=== PATIENT | female | born 1975 | race Caucasian/White ===

== ENCOUNTER 2016-04-11 14:09 | Emergency (ER) | payer MEDICAID, OTHER ==
[~2016-04-11] VITALS: Ht 162.6 cm; Wt 50.0 kg
[~2016-04-11 14:09] MED LIST: CHLO25 PO
[2016-04-11 14:12] VITALS: BP 128/94; PULSE 148; RESP 24; TEMP 98.1; O2SAT 93
--- NOTE | 2016-04-11 14:22 | PD ---
HPI Chief Complaint: General Weakness Time Seen by Provider: 14:22 Travel History International Travel<30 days: No Contact w/Intl Traveler<30days: No Traveled to known affect area: No History of Present Illness HPI 40-year-old female came to the emergency room with history of lower back pain and leg pain that has been going on for past several weeks. She has been tearful but I smell strong alcohol in her breath. She says she was clean for 30 days and has started drinking again for past 2 weeks because of the pain. She drinks half a bottle of vodka and couple beers every day. However she says that it is "nearly not enough". She had an MRI done of her lower back one week ago which was within normal limits. Patient is tachycardic in 140s. She is also upset. She has been going to a chiropractor for these pain. FORMERLY [facility], [facility] Past Medical History Narrative Medical List of her past medical history is reviewed from the nursing note. Cardiovascular Problems: Yes (HTN) Diminished Hearing: No GERD: Yes Hypertension: Yes ?: Not : 8 Para: 2 Social History Alcohol Use: Yes (6 BEERS DAILY & 1/2 P[place] DAILY) Tobacco Use: No Substance Use: Yes (XANAX) Allergies-Medications (Allergen,Severity, Reaction): Coded Allergies: No Known Allergies (Unverified , 04/11/16) Comments No known drug allergies. Reported Meds & Prescriptions Reported Meds & Active Scripts Active Reported Zantac (Ranitidine HCl) 150 Mg Tab 150 Mg PO BID Amlodipine (Amlodipine Besylate) 5 Mg Tab 5 Mg PO DAILY Narrative Medication List of her home medications reviewed from the nursing note. Review of Systems Except as stated in HPI: all other systems reviewed are Neg Physical Exam Narrative GENERAL: Awake, alert, tearful, moderate distress SKIN: Warm and dry. HEAD: Atraumatic. Normocephalic. EYES: Pupils equal and round. No scleral icterus. No injection or drainage. ENT: No nasal bleeding or discharge. Mucous membranes pink and moist. NECK: Trachea midline. No JVD. CARDIOVASCULAR: Regular rate and rhythm. No murmur appreciated. RESPIRATORY: No accessory muscle use. Clear to auscultation. Breath sounds equal bilaterally. GASTROINTESTINAL: Abdomen soft, non-tender, nondistended. Hepatic and splenic margins not palpable. MUSCULOSKELETAL: No obvious deformities. No clubbing. No cyanosis. No edema. NEUROLOGICAL: Awake and alert. No obvious cranial nerve deficits. Motor grossly within normal limits. Normal speech. PSYCHIATRIC: Appropriate mood and affect; insight and judgment normal. Data Data Last Documented VS Vital Signs Date Time Temp Pulse Resp B/P Pulse Ox O2 Delivery O2 Flow Rate FiO2 04/12/16 11:19 88 18 135/93 96 Room Air 04/12/16 03:16 97.4 Orders Urinalysis - C+S If Indicated (04/11/16 14:15) Ed Urine Pregnancytest Poc (04/11/16 14:15) Complete Blood Count With Diff (04/11/16 14:42) Comprehensive Metabolic Panel (04/11/16 14:42) Drug Screen, Random Urine (04/11/16 14:42) Alcohol (Ethanol) (04/11/16 14:42) Magnesium (Mg) (04/11/16 14:42) Sodium Chlor 0.9% 1000 Ml Inj (Ns 1000 M (04/11/16 14:45) Creatine Kinase (Cpk) (04/11/16 14:42) Potassium Chloride Eff (K-Lyte Cl Eff) (04/11/16 16:15) Psych Screen (04/11/16 16:36) Ibuprofen (Motrin) (04/11/16 18:30) Diet Heart Healthy (04/12/16 Breakfast) Alcohol Withdrawal Asmt-Ciwa ONCE (04/11/16 19:12) Flumazenil Inj (Romazicon Inj) (04/11/16 19:15) Lorazepam (Ativan) (04/11/16 19:15) Lorazepam Inj (Ativan Inj) (04/11/16 19:15) Lorazepam (Ativan) (04/11/16 19:15) Lorazepam Inj (Ativan Inj) (04/11/16 19:15) Lorazepam Inj (Ativan Inj) (04/11/16 19:15) Lorazepam Inj (Ativan Inj) (04/11/16 19:15) Diet Regular Basic (04/12/16 Lunch) Labs Laboratory Tests Test 04/11/16 14:50 White Blood Count 20.4 TH/MM3 Red Blood Count 3.12 MIL/MM3 Hemoglobin 12.8 GM/DL Hematocrit 37.5 % Mean Corpuscular Volume 119.9 FL Mean Corpuscular Hemoglobin 40.9 PG Mean Corpuscular Hemoglobin 34.1 % Concent Red Cell Distribution Width 16.5 % Platelet Count 318 TH/MM3 Mean Platelet Volume 8.1 FL Neutrophils (%) (Auto) 67.0 % Lymphocytes (%) (Auto) 27.0 % Monocytes (%) (Auto) 5.1 % Eosinophils (%) (Auto) 0.5 % Basophils (%) (Auto) 0.4 % Neutrophils # (Auto) 13.7 TH/MM3 Lymphocytes # (Auto) 5.5 TH/MM3 Monocytes # (Auto) 1.0 TH/MM3 Eosinophils # (Auto) 0.1 TH/MM3 Basophils # (Auto) 0.1 TH/MM3 CBC Comment AUTO DIFF Differential Total Cells 100 Counted Neutrophils % (Manual) 68 % Lymphocytes % 25 % Monocytes % 7 % Neutrophils # (Manual) 13.9 TH/MM3 Differential Comment FINAL DIFF MANUAL Platelet Estimate NORMAL Platelet Morphology Comment NORMAL Urine Color DARK-YELLOW Urine Turbidity HAZY Urine pH 5.5 Urine Specific [place] 1.026 Urine Protein 30 mg/dL Urine Glucose (UA) NEG mg/dL Urine Ketones TRACE mg/dL Urine Occult Blood NEG Urine Nitrite NEG Urine Bilirubin NEG Urine Urobilinogen 4.0 MG/DL Urine Leukocyte Esterase NEG Urine RBC 1 /hpf Urine WBC 3 /hpf Urine Squamous Epithelial 2 /hpf Cells Urine Hyaline Casts 9 /lpf Urine Mucus MOD /lpf Microscopic Urinalysis Comment CULT NOT INDICATED Sodium Level 139 MEQ/L Potassium Level 3.2 MEQ/L Chloride Level 104 MEQ/L Carbon Dioxide Level 19.9 MEQ/L Anion Gap 15 MEQ/L Blood Urea Nitrogen 3 MG/DL Creatinine 0.48 MG/DL Estimat Glomerular Filtration 144 ML/MIN Rate Random Glucose 101 MG/DL Calcium Level 8.7 MG/DL Magnesium Level 1.8 MG/DL Total Bilirubin 0.7 MG/DL Aspartate Amino Transf 162 U/L (AST/SGOT) Alanine Aminotransferase 146 U/L (ALT/SGPT) Alkaline Phosphatase 324 U/L Total Creatine Kinase 26 U/L Total Protein 7.4 GM/DL Albumin 3.5 GM/DL Urine Opiates Screen NEG Urine Barbiturates Screen NEG Urine Amphetamines Screen NEG Urine Benzodiazepines Screen NEG Urine Cocaine Screen NEG Urine Cannabinoids Screen POS Ethyl Alcohol Level 308 MG/DL MDM Medical Decision Making Medical Screen Exam Complete: Yes Emergency Medical Condition: Yes Medical Record Reviewed: Yes Differential Diagnosis Chronic alcoholism, chronic back pain, electrolyte abnormalities, rhabdomyolysis Narrative Course 4:16 PM blood test results are coming back. Patient has significant leukocytosis that I'm not quite sure where that is coming from. She also has hypokalemia and I have given her by mouth potassium replacement. Liver enzymes are elevated which is from chronic alcoholism most probably. Urine drug screen is positive for marijuana. CPK is not elevated and the urine analysis has some ketones from her lack of diet. Patient has received 1 L of IV fluid bolus. I' ll order a second liter. 4:36 PM I just discussed with the patient regarding her test results. Patient has a significantly high alcohol level and he had functional which tells me that she has a very high tolerance for alcohol quite possibly from her chronic alcoholism which she agreed as well. Initially I was little baffled regarding the leukocytosis. Patient told me that a week ago she was given a five-day course of steroid which is quite possibly the reason for the leukocytosis. Meanwhile she has been constantly crying about her leg pain and told her family who was in the room that she would rather . I explained to her that from ER standpoint there is nothing more that can be done to investigate the leg pain. She does not have rhabdomyolysis as per my test results today. MRI done at [facility] as per her own admission 1 week ago was negative. There is a possibility that the pain could be peripheral neuropathy from chronic alcoholism and malnourishment. I have recommended her to follow up with her primary care and get a referral for pain management. Because of her suicidal comments I am requesting a psych screen at this point. 5 PM patient wanted to leave and family member approached me since they were concerned about her behavior. I have just Auguste acted her so that she can be in voluntarily kept in the ER till a psych screen is done. Procedures EKG Prior to Arrival: No Diagnosis Primary Impression: Chronic alcoholism Additional Impressions: Peripheral neuropathy Qualified Code: G62.9 - Peripheral polyneuropathy Major depression Qualified Code: F32.3 - Severe single current episode of major depressive disorder, with psychotic features Ildefonso Bridges MD Apr 11, 2016 14:22
[2016-04-11 14:32] VITALS: BP 141/94; PULSE 130; RESP 12; O2SAT 97
[2016-04-11] MEDS ORDERED: ZANT150T2 PO (14:34)
[2016-04-11] MEDS ORDERED: AMLO5TAB2 PO (14:34)
[2016-04-11] MEDS ORDERED: SODIUM CHLOR 0.9% 1000 ML INJ 1,000 ML IV ONE (14:45)
[2016-04-11 15:26] LABS: AUTOMATED NEUTROPHIL # 13.7 TH/MM3 (1.8-7.7); BASOPHIL # 0.1 TH/MM3 (0-0.2); BASOPHIL % 0.4 % (0.0-2.0); EOSINOPHIL # 0.1 TH/MM3 (0-0.4); EOSINOPHIL % 0.5 % (0.0-4.0); HEMATOCRIT 37.5 % (35.0-46.0); LYMPHOCYTE # 5.5 TH/MM3 (1.0-4.8); MEAN CELL VOLUME 119.9 FL (80.0-100.0); MEAN CORPUSCULAR HEMOGLOBIN 40.9 PG (27.0-34.0); MEAN CORPUSCULAR HGB CONC 34.1 % (32.0-36.0); MONO % 5.1 % (0.0-8.0); PLATELET COUNT 318 TH/MM3 (150-450); RED BLOOD COUNT 3.12 MIL/MM3 (4.00-5.30); RED CELL DISTRIBUTION WIDTH 16.5 % (11.6-17.2); WHITE BLOOD COUNT 20.4 TH/MM3 (4.0-11.0)
[2016-04-11 15:29] LABS: HEMO FLAGS AUTO DIFF
[2016-04-11 15:32] LABS: BLOOD, URINE NEG (NEG); COMMENT (UR) CULT NOT INDICATED; CULTURE IF INDICATED CULT NOT INDICATED; GLUCOSE,URINE NEG (NEG); HYALINE CAST, URINE 9 /lpf (RARE); KETONE, URINE TRACE mg/dL (NEG); MUCUS URINE MOD /lpf (OCC); NITRITE,URINE NEG (NEG); PH, URINE 5.5 (5.0-8.5); SQUAMOUS EPITHELIAL CELL URINE 2 /hpf (0-5); URINE COLOR DARK-YELLOW (YELLW/STRAW)
[2016-04-11 15:43] LABS: AMPHETAMINE, URINE NEG (NEG); BARBITURATES, URINE NEG (NEG); COCAINE, URINE NEG (NEG)
[2016-04-11 15:51] LABS: ANION GAP 15 MEQ/L (5-15)
[2016-04-11 16:03] LABS: ALKALINE PHOSPHATASE 324 U/L (45-117); ALT (GPT) 146 U/L (10-53); AST (GOT) 162 U/L (15-37); BICARBONATE 19.9 MEQ/L (21.0-32.0); BLOOD UREA NITROGEN 3 MG/DL (7-18); CHLORIDE 104 MEQ/L (98-107); CREATINE KINASE 26 U/L (26-192); GLOMERULAR FILTRATION RATE 144 ML/MIN (>89); MAGNESIUM 1.8 MG/DL (1.5-2.5); NEUTROPHIL # MANUAL DIFF 13.9 TH/MM3 (1.8-7.7); POLYS (SEG NEUTROPHILS) 68 % (16-70); POTASSIUM 3.2 MEQ/L (3.5-5.1); SODIUM (NA) 139 MEQ/L (136-145); TOTAL BILIRUBIN ADULT 0.7 MG/DL (0.2-1.0); WBC DIFF SAMPLE 100
[2016-04-11 16:04] LABS: PLATELET ESTIMATE SMEAR NORMAL (NORMAL); PLATELET MORPHOLOGY NORMAL (NORMAL); SCAN/DIFF FINAL DIFF MANUAL
[2016-04-11] MEDS ORDERED: POTASSIUM CHLORIDE 25 MEQ EFFERVESCENT TAB PO ONE (16:15)
[2016-04-11] MEDS ORDERED: IBUPROFEN 400 MG TAB PO ONE (18:30)
[2016-04-11] MEDS ORDERED: LORazepam 2 MG/ML VIAL IV PUSH PRN ×4 (19:15)
[2016-04-11] MEDS ORDERED: LORazepam 1 MG TAB PO PRN (19:15)
[2016-04-11] MEDS ORDERED: FLUMAZENIL 1 MG/10 ML VIAL IV PUSH PRN (19:15)
[2016-04-11] MEDS ORDERED: LORazepam 2 MG TAB PO PRN (19:15)
[2016-04-11 19:16] VITALS: BP 128/82; PULSE 122; RESP 18; O2SAT 100
[2016-04-11 22:27] VITALS: BP 152/99; PULSE 114; RESP 17; O2SAT 99
[2016-04-12 03:16] VITALS: BP 136/88; PULSE 104; RESP 19; TEMP 97.4; O2SAT 98
[2016-04-12 07:13] VITALS: BP 128/79; PULSE 104; RESP 18
[2016-04-12 10:42] VITALS: BP 135/93; PULSE 88; RESP 18; O2SAT 96
--- NOTE | 2016-04-12 11:01 | PD.CONS ---
Provisional Diagnosis Admission Date Devol I. Opiates dependence, opioid-induced mood disorder Devol II. Deferred Devol III. 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 She has been tearful but I smell strong alcohol in her breath. She says she was clean for 30 days and has started drinking again for past 2 weeks because of the pain. She drinks half a bottle of vodka and couple beers every day. However she says that it is nearly not enough. She had an MRI done of her lower back one week ago which was within normal limits. 1 patient was explained that she was not given more pain medication she made a suicidal statement was Auguste acted. On psychiatric evaluation today the patient was found calm and cooperative, she explains that she has been experiencing lower back pain for several months, and she has been frustrated because she cannot find a prescriber for opiates in the community. She says that she came to the hospital with the hope that she could be given pain medication, but instead she was mistreated by ER physicians. Patient says that she is states that she wanted to finish with her problems, but she never say she wanted to . She says that she has too many reasons to live for, she has a family, 2 kids, and her animals, however she does feel sad because her pain is undertreated and she has to buy opiates in the street. At this moment the patient denies suicidal or homicidal ideation, she denies visual and auditory hallucinations. On longitudinal observation no behavior or mood dysregulation has been observed or reported. Patient is fully oriented 3. She reports occasional use of alcohol and street benzodiazepines for anxiety and pain. She denies the use of marijuana, cocaine, heroine. Collateral from her ex-, who she lives with, Rick Gonzalez, was obtained, he hasn't noticed any psychotic, initial behavior on the patient in the last weeks. He does report that the patient has been on pain for months. He doesn't think that the patient wants to commit suicide or is depressed. He feels safe taking the patient back home. Review of Systems Constitutional: DENIES: Diaphoretic episodes, Fatigue, Fever, Weight gain, Weight loss, Chills, Dizziness, Change in appetite, Night Sweats Endocrine: DENIES: Abnorml menstrual pattern, Heat/cold intolerance, Polydipsia , Polyuria, Polyphagia Eyes: DENIES: Blurred vision, Diplopia, Eye inflammation, Eye pain, Vision loss , Photosensitivity, Double Vision Ears, nose, mouth, throat: DENIES: Tinnitus, Hearing loss, Vertigo, Nasal discharge, Oral lesions, Throat pain, Hoarseness, Ear Pain, Running Nose, Epistaxis, Sinus Pain, Toothache, Odynophagia Respiratory: DENIES: Apneas, Cough, Snoring, Wheezing, Hemoptysis, Sputum production, Shortness of breath Cardiovascular: DENIES: Chest pain, Palpitations, Syncope, Dyspnea on Exertion , PND, Lower Extremity Edema, Orthopnea, Claudication Gastrointestinal: DENIES: Abdominal pain, Black stools, Bloody stools, Constipation, Diarrhea, Nausea, Vomiting, Difficulty Swallowing, Anorexia Musculoskeletal: COMPLAINS OF: Back pain Integumentary: DENIES: Abnormal pigmentation, Pruritus, Rash, Nail changes, Breast masses, Breast skin changes, Nipple discharge Hematologic/lymphatic: DENIES: Bruising, Lymphadenopathy Immunologic/allergic: DENIES: Eczema, Urticaria Neurologic: DENIES: Abnormal gait, Headache, Localized weakness, Paresthesias, Seizures, Speech Problems, Tremor, Poor Balance Psychiatric: DENIES: Anxiety, Confusion, Mood changes, Depression, Hallucinations, Agitation, Suicidal Ideation, Homicidal Ideation, Delusions Past Family Social History Coded Allergies: No Known Allergies (Unverified , 04/11/16) Reported Medications Ranitidine (Zantac)150 Mg [id number] Mg PO BID Ref 0 04/11/16 Amlodipine 5 Mg Tab5 Mg PO DAILY Ref 0 04/11/16 Current Medications Medications (Trade) Dose Ordered Sig/Katya Route Start Time Stop Time Status Last Admin (Ativan) 1 mg Q4H PRN PO 04/11/16 19:15 04/11/16 22:35 (Ativan Inj) 1 mg Q4H PRN IV PUSH 04/11/16 19:15 (Ativan) 2 mg Q2H PRN PO 04/11/16 19:15 (Ativan Inj) 2 mg Q2H PRN IV PUSH 04/11/16 19:15 (Ativan Inj) 2 mg Q1H PRN IV PUSH 04/11/16 19:15 (Ativan Inj) 2 mg Q15M PRN IV PUSH 04/11/16 19:15 Physical Exam Vital Signs Vital Signs Date Time Temp Pulse Resp B/P Pulse Ox O2 Delivery O2 Flow Rate FiO2 04/12/16 10:42 88 18 135/93 96 Room Air 04/12/16 03:16 97.4 Mental Status Examination Appearance woman, who looks older than his stated age, good hygiene, [facility], she is calm and cooperative Speech: Unremarkable Orientation: x3 Memory: Unremarkable Thought Process: Logical Thought Content: Unremarkable Hallucination Type: None Suicidal Ideation: No Previous Suicide Attempts: No Homicidal Ideation: No Insight: Good Affect: Good Mood: Appropriate Motor Activity: Normal gait Assessment & Plan Problem List: (1) Opiate dependence, continuous ICD Code: F11.20 (2) Adjustment disorder with depressed mood Assessment & Plan: 40-year-old woman no previous psychiatric history, history of opiates, sedative hypnotics, alcohol use disorder, Kalyani acted in the ER due to suicidal statements in the context of self-reported chronic pain and difficulties getting opiates prescription. On psychiatric evaluation today the patient denies suicidal and homicidal ideation. Patient endorses sadness due to chronic pain undertreated, and difficulties getting opiates. Patient admitted that she may be abusing opiate, and she is getting the opiates in the street. She denies depressive symptoms such as hopelessness, helplessness, anhedonia, problems with concentration, with sleep, suicidal thoughts. Patient is future oriented and focus getting pain medication. The patient does not meet criteria for psychiatric admission at this moment. Recent suicidal statement in the ER was related with anger and frustration and not with a primary psychiatric condition that requires treatment. Collateral information from as was contacted, he feels safe getting the patient back home. Extensive support, motivation psycho education was provided. Auguste act will be lifted. ICD Code: F43.21 Assessment & Plan Estimated LOS: Sterling Kohler MD Apr 12, 2016 11:01
[2016-04-12 11:19] VITALS: BP 135/93; PULSE 88; RESP 18; O2SAT 96
== END 2016-04-12 14:08 | disposition home or self-care (01) ==
LOC: NEPA 14:09 → NEPJ 04-12 14:08
DX: G62.9 Polyneuropathy, unspecified (principal); F32.9 Major depressive disorder, single episode, unspecified; F10.10 Alcohol abuse, uncomplicated; R00.0 Tachycardia, unspecified; I10 Essential (primary) hypertension; Y90.8 Blood alcohol level of 240 mg/100 ml or more; F19.10 Other psychoactive substance abuse, uncomplicated
CPT/HCPCS: 80053; 80307; 80320; 81001; 82550; 83735; 84703; 85007; 85027; 96360; 99283; J7030